=== PATIENT | male | born 1960 | race Caucasian/White ===

== ENCOUNTER 2020-08-11 21:32 | Emergency (ER) | payer OTHER, SELFPAY ==
--- NOTE | ~2020-08-11 | XR_ITS ---
EXAMINATION: XR FINGER, LEFT CLINICAL INFORMATION: Amputated tip of fifth digit COMPARISON: None TECHNIQUE: 3 views of the left fifth digit. FINDINGS: There appears to be open wound at the tip of the fifth digit. Compared to the other distal phalanges, a piece of the distal bone may be seen. No fracture fragments are seen. Incidental note made of degenerative changes at other DIP joints. XR/XR finger LT min 2V IMPRESSION: No acute fractures. Apparent amputation of the tip of the distal phalanx fifth digit
[2020-08-11 21:49] VITALS: BP 118/76; PULSE 80; RESP 16; TEMP 36.8; O2SAT 95; BMI 34.9
--- NOTE | 2020-08-11 21:53 | PC.NURSE ---
FINGER WRAPPED WITH BARI AND 2X2'S. HAD TO BE REINFORCED DUE TO BLEEDING THROUGH INITIAL BANDAGING. LEFT HAND ELEVATED ONTO PILLOW ON CHEST.
--- NOTE | 2020-08-11 22:07 | ED.WOUNDLAC ---
HPI - Wound/Laceration General Chief Complaint: Wound/Laceration Stated Complaint: lac Time Seen by Provider: 08/11/20 22:01 Source: patient and family Mode of arrival: ambulatory Limitations: altered mental status (Intoxicated) History of Present Illness HPI narrative: 59-year-old male presents with an amputated left 5th finger tip. States that he has been drinking [place] whiskey tonight and does not recall how he injured his finger. Related Data Previous Rx's Medication Instructions Recorded amoxicillin-pot clavulanate 1 tab PO Q12H 10 Days #20 tab 08/11/20 [Augmentin] oxycodone 5 mg PO Q4H PRN #10 tab 08/11/20 Allergies Allergy/AdvReac Type Severity Reaction Status Date / Time No Known Allergies Allergy Verified 08/11/20 22:07 Review of Systems Review of Systems: Constitutional: No Fever, No Chills ENT/Mouth: No Ear Pain, No Hoarseness, No sore throat Eyes: No Eye Pain, No Swelling, No Redness, No Foreign Body Cardiovascular: No Chest Pain, No SOB Respiratory: No Cough, No Dyspnea Gastrointestinal: No Nausea, No Vomiting, No Diarrhea, No abdominal Pain Genitourinary: No Dysuria, No Hematuria Musculoskeletal: positive left 5th finger pain, No Myalgias, No Joint Swelling Skin: Positive left 5th finger tip amputation with bone involvement, No Skin lacerations, No rash Neuro: No Weakness, No Numbness, No Paresthesias, No Loss of Consciousness, No Dizziness, No Headache Psych: No Anxiety/Panic, No Depression Heme/Lymph: no easy bruising, no Lymphadenopathy Endocrine: No Polyuria, No Polydipsia Yes all other systems are reviewed and are negative [facility] Past Medical History Attestation statement: The following information was validated with the patient. Source: old records reviewed Medical History Hypertension Social History Social History Advance Directives: No Advance Directives Information Provided: No Physical Exam Vital Signs: Vital Signs: Last Vital Signs Temp 98.2 F 08/11/20 21:49 Pulse 80 08/11/20 21:49 Resp 16 08/11/20 21:49 BP 118/76 08/11/20 21:49 Pulse Ox 95 08/11/20 21:49 Body Mass Index 34.9 Appearance: Alert. Oriented X3. No acute distress. Acute alcohol intoxication Eyes: Pupils equal, round and reactive to light. ENT: Pharynx normal. Neck: Normal inspection. Neck supple. CVS: Normal heart rate and rhythm. Pulses normal. Respiratory: No respiratory distress. Breath sounds normal. Abdomen: Soft and nontender. Skin: Skin warm and dry. Normal skin color. Normal skin turgor. Extremities: Moves all extremities against resistance. Left Fifth tip finger amputated with visible bone involvement. Neuro: No motor deficit. No sensory deficit. Course Course Course Narrative: 59-year-old male presents with a amputated left 5th finger tip. He is visibly intoxicated, he does not recall how he injured his finger. His drove him to the emergency department. Plan of care is for Tdap vaccine, Ancef 2 g IV, x-rays. I applied 8 sutures to the tip of the finger to approximate margins together and tried to close the wound. Detailed instructions to about needing to follow up with Hand surgery on Thursday and importance of antibiotics. As he is visibly intoxicated he should not take any pain medications until clinically sober. Prepped and draped in sterile fashion, irrigated with copious amounts of normal saline. Please refer to procedure note for full details. Patient tolerated procedure well. No bleeding or blood loss noted, finger tourniquet utilized during procedure to prevent blood loss. Patient tolerated procedure well. Patient and patient's family verbalized understanding of discharge instructions. Procedures Laceration Laceration 1: Site: hand Side (If applicable): left Size (cm): 3 Description: linear Depth: involves muscle layer Local Anesthetic: lidocaine 2% Amount of anesthesia used (mL): 5 Pre-repair: wound explored, irrigated extensively and wound margins revised Skin layer closed with: nylon Size (cm): 4-0 and 5-0 Number of sutures: 8 Technique: simple, interrupted and other (4 size 4-0, 4 size 5-0) MDM - Wound/Laceration Differential Diagnosis Differential diagnosis: Likely laceration Medical Records Attestation: I reviewed the patient's medical records. Imaging Data Left 5th finger: Attestation: I personally reviewed and interpreted this imaging study as follows: Radiologist's impression: EXAMINATION: XR FINGER, LEFT CLINICAL INFORMATION: Amputated tip of fifth digit COMPARISON: None TECHNIQUE: 3 views of the left fifth digit. FINDINGS: There appears to be open wound at the tip of the fifth digit. Compared to the other distal phalanges, a piece of the distal bone may be seen. No fracture fragments are seen. Incidental note made of degenerative changes at other DIP joints. XR/XR finger LT min 2V IMPRESSION: No acute fractures. Apparent amputation of the tip of the distal phalanx fifth digit Discharge Plan Discharge Clinical Impression: Amputated finger Qualifiers: Encounter type: initial encounter Qualified Code(s): S68.119A - Complete traumatic metacarpophalangeal amputation of unspecified finger, initial encounter Patient Disposition: Home, Self-Care Instructions: Finger Amputation (ED) Additional Instructions: You were evaluated for an amputated tip of the left 5th finger. You must follow-up with a hand surgeon, I referred you to Sagrario Cody's MD. please call and request an appointment on Thursday. You must take the antibiotics that were prescribed to you. Your bone was involved and you have high risk for osteomyelitis. We updated her Tdap vaccine today. I prescribed oxycodone for pain management. This medication is a narcotic and has high risk for addiction and abuse. Do not drive or operate machinery while taking this medication. This medication can cause drowsiness, increased risk for falls, and cause constipation. Use MiraLax and or Colace as needed to help soften stools. You may consider drinking less. Thank you for choosing this emergency department for evaluation. Please follow-up with primary care physician as needed. Return to the emergency department for any new, concerning, or worsening symptoms. Prescriptions: New amoxicillin-pot clavulanate [Augmentin] 875-125 mg tablet 1 tab PO Q12H 10 Days Qty: 20 RF: 0 oxycodone 5 mg tablet 5 mg PO Q4H PRN (Reason: pain) Qty: 10 RF: 0 Referrals: Sagrario Shannon MD [Physician] - 2 days (Left 5th finger tip amputation with bone involvement) Interventions: ED Discharge Assessment Last Done: 08/12/20 00:30 Discharge Date/Time: 08/12/20 00:31
[2020-08-11] MEDS: ceFAZolin Sodium 1.5 GM in 0.9 % Sodium Chloride 100 ML IV (23:15)
[2020-08-11] MEDS: Lidocaine HCl 2 % MPF 5 ML VIAL SUBCUT (23:16)
[2020-08-12] MEDS: Diphth,Pertus(ACell),Tet Adult 0.5 ML SYRINGE IM (00:03)
== END 2020-08-12 00:31 | disposition home or self-care (01) ==
PROVIDERS: Emergency Provider Internal Medicine; PCP Internal Medicine
DX: S68.117A Complete traumatic metacarpophalangeal amputation of left little finger, initial encounter (principal); X58.XXXA Exposure to other specified factors, initial encounter; F10.920 Alcohol use, unspecified with intoxication, uncomplicated; Y90.9 Presence of alcohol in blood, level not specified; I10 Essential (primary) hypertension; Y93.9 Activity, unspecified; Y92.9 Unspecified place or not applicable; Y99.9 Unspecified external cause status
CPT/HCPCS: 13132; 73140; 90471; 90715; 96365; 99284; J0690

== ENCOUNTER → 2020-08-13 10:12 | Outpatient (BNVA) | payer OTHER, SELFPAY | PROVIDERS: PCP Internal Medicine; Visit Provider Physician Assistant ==

== ENCOUNTER 2020-08-14 09:19 | Day surgery (SDC) | payer OTHER, SELFPAY ==
--- NOTE | 2020-08-13 11:56 | HO.ANESPROP2 ---
Documented by User: Kate Workman 08/13/20 11:56 HPI - Anesthesia Eval Consult details Narrative: 59yo M for Left Amputation Revision,small finger with excision of nail bed PMFSH Active Problems Active Problems: All Active Problems (Updated 08/13/20 @ 11:22 by Cici Archer PA-C) Partial traumatic amputation of right little finger through phalanx (Acute) Past Medical History Medical History Hypertension Social History Social History Smoking Status: Never smoker Second Hand Smoke Exposure: No Use of substances other than those prescribed or required for medical reasons: No Are you DNR?: No Advance Directives: No Advance Directives Information Provided: Yes Current occupational status: retired Meds Allergies Allergy/AdvReac Type Severity Reaction Status Date / Time No Known Allergies Allergy Verified 08/11/20 22:07 Home Medications Medication Instructions Recorded Confirmed Last Taken Type escitalopram oxalate 5 mg tablet 5 mg PO DAILY 08/13/20 Unknown History Exam Exam Date and Time: August 13, 2020 115 Assessment and Plan Assessment Anesthesia Assessment: Chart Reviewed Documented by User: Christi Lawson 08/14/20 11:14 PMFSH Past Medical History Medical History Hypertension Social History Social History Smoking Status: Never smoker Second Hand Smoke Exposure: No Use of substances other than those prescribed or required for medical reasons: No Are you DNR?: No Advance Directives: No Advance Directives Information Provided: Yes Current occupational status: retired Meds Allergies Allergy/AdvReac Type Severity Reaction Status Date / Time No Known Allergies Allergy Verified 08/11/20 22:07 Home Medications Medication Instructions Recorded Confirmed Last Taken Type escitalopram oxalate 5 mg tablet 5 mg PO DAILY 05/17/21 Unknown History Exam Airway Mallampati Class: II TM Dist: >3cm Neck ROM: Full Assessment and Plan Assessment Anesthesia Assessment: Anesthesia Plan Discussed and Chart Reviewed Final Anesthetic Review NPO: Yes ASA Class: II Final Preanesthetic Review: No Changes in Pt Med Stat, Meds/Allgs Chart Reviewed, Consent Obtained/Reviewed and Anes Risks/Benef Reviewed Patient Risk: Low Procedure Risk: Low Assessment/Block/Sedation in SS: Assess/Block/Sedation-SS Anesthetic Plan Anesthetic Plan: MAC: Disposition: Standard PACU
[2020-08-14 09:38] VITALS: BP 152/85; PULSE 77; RESP 18; TEMP 36.6; O2SAT 98; BMI 34.9
[2020-08-14] MEDS: ceFAZolin Sodium/Dextrose,Iso 2 GM/50 ML PIGGYBACK IV (09:48)
[2020-08-14 13:55] VITALS: BP 119/95; PULSE 84; RESP 16; TEMP 36.3; O2SAT 97
[2020-08-14 14:10] VITALS: BP 136/84; PULSE 88; RESP 16; O2SAT 98
--- NOTE | 2020-08-14 14:41 | P.OP_ITS ---
Operative Note Operative Note Date of Service: 08/14/20 Narrative: Operative Note Narrative: Preop diagnosis: Left small finger distal phalanx level amputation Postop diagnosis: Same Procedure: 1. Left small finger revision amputation 2. Excision of left small finger nail germinal matrix Surgeon: Sagrario Shannon MD Anesthesia: Mac plus regional block Findings: Left small finger distal phalanx amputation Implants: None Tourniquet time: 20 minutes EBL: 5.0 ml Specimen: None Drains: None Complications: None Disposition: Brought to the recovery room in stable condition Plan: Continue antibiotics Follow-up in 10-14 days for wound check Anticipate suture removal in 3 weeks Indications: The patient is a 59 year old man with a left small finger distal phalanx level amputation due to a car door . The risks and benefits of operative treatment, including but not limited to risk of damage to blood vessels, nerves, tendons, infection, recurrence, persistent pain or numbness, incomplete resolution of preoperative symptoms, or need for further surgery were discussed with the patient and they wished to proceed with surgery. Procedure: Once consent was obtained patient was brought back to the operating suite and placed in the operating table in a supine position. . Perioperative antibiotics and anesthesia was administered by the anesthesia team. A tourniquet was applied to the proximal aspect of the left upper extremity and the limb was prepped and draped in a standard surgical fashion. The limb was elevated exsanguinated with Esmarch bandage and the tourniquet inflated to 250 mm of mercury for a total tourniquet time of 20 minutes. I performed an ulnar nerve block by infiltrating about the ulnar nerve at the wrist with some core % plain Marcaine for postop pain control. The sutures were removed from the tip of the left small finger. The remaining nail was removed from the nail bed using a [place] elevator. I used a 15. Blade and a rongeur to remove the germinal matrix and sterile matrix from the nail bed. I used a rongeur or to shorten the distal phalanx by about 5 mm to allow for soft tissue coverage. I freshened up the skin edges using a 15. Blade removing only a mm or 2 where possible. The distal phalanx was debrided as were the soft tissues. A curette was used to clean the soft tissue from the distal phalanx. The wound was copiously irrigated with normal saline. I then reapproximated the skin and soft tissue over the tip of the small finger using some 5 0 nylon and 4-0 nylon suture material. At this point the tourniquet was deflated and hemostasis obtained with a brief period of local pressure . A sterile dressing was applied. The patient appears to have tolerated the procedure well with no complications. All digits were well vascularized at the conclusion of the case..
--- NOTE | 2020-08-14 14:41 | MHC.SHP ---
Pre-Procedural Eval Section B Chief Complaint: post traumatic injury little finger Allergies: Allergies Allergy/AdvReac Type Severity Reaction Status Date / Time No Known Allergies Allergy Verified 08/11/20 22:07 Plan I have reviewed the history and physical and performed a pertinent physical examination on my patient. No changes have occurred unless specified.
== END 2020-08-14 14:45 | disposition home or self-care (01) ==
PROVIDERS: PCP Internal Medicine; Visit Provider Orthopaedic Surgery
PROC: (CPT 26951; principal; 2020-08-14 11:40)
DX: S68.627A Partial traumatic transphalangeal amputation of left little finger, initial encounter (principal); V89.2XXA Person injured in unspecified motor-vehicle accident, traffic, initial encounter; Y93.89 Activity, other specified; Y92.9 Unspecified place or not applicable; Y99.8 Other external cause status; I10 Essential (primary) hypertension; Z79.899 Other long term (current) drug therapy
CPT/HCPCS: 26951; J0690; J2250; J3010

== ENCOUNTER → 2020-08-22 08:38 | Outpatient (BNVA) | payer OTHER, SELFPAY | PROVIDERS: PCP Internal Medicine; Visit Provider Physician Assistant ==

== ENCOUNTER → 2020-08-31 11:21 | Outpatient (BNVA) | payer OTHER, SELFPAY | PROVIDERS: Visit Provider Physician Assistant ==

== ENCOUNTER → 2020-09-05 09:31 | Outpatient (BNVA) | payer OTHER, SELFPAY | PROVIDERS: Visit Provider Orthopaedic Surgery ==

== ENCOUNTER → 2020-10-03 10:19 | Outpatient (BNVA) | payer OTHER, SELFPAY | PROVIDERS: Visit Provider Orthopaedic Surgery ==

== ENCOUNTER → 2020-11-07 14:22 | Outpatient (BNVA) | payer OTHER, SELFPAY | PROVIDERS: Visit Provider Orthopaedic Surgery ==

== ENCOUNTER 2020-11-29 09:11 | Outpatient (REF) | payer OTHER, SELFPAY | END 2020-11-29 09:12 | disposition home or self-care (01) | LOC: HO.HOSX 09:11 | PROVIDERS: Visit Provider Orthopaedic Surgery | DX: Z13.89 Encounter for screening for other disorder (principal) ==

== ENCOUNTER 2021-01-14 09:27 | Day surgery (SDC) | payer OTHER, SELFPAY ==
[2021-01-14 11:04] VITALS: BP 147/99; PULSE 81; RESP 16; TEMP 36.2; O2SAT 96
--- NOTE | 2021-01-14 11:26 | MHC.SHP ---
Pre-Procedural Eval Section A Date of Service: 01/14/21 The patient is an INPATIENT: No Changes since office visit: No Cold of Flu in the past 2 weeks, No New Medical Problems, No Changes in Medication and No Patient answered all questions The History & Physical has been completed within 30 days and I have reviewed it.: Yes Section B Chief Complaint: nail disorder Allergies: Allergies Allergy/AdvReac Type Severity Reaction Status Date / Time No Known Allergies Allergy Verified 10/03/20 10:41 Plan I have reviewed the history and physical and performed a pertinent physical examination on my patient. No changes have occurred unless specified.
--- NOTE | 2021-01-14 11:27 | W.PM.OPN ---
Operative Note Operative Note Date of Service: 01/14/21 Narrative: Operative Note Preop diagnosis: 1. Left small finger nail horn Postop diagnosis: The same Procedure: 1. Left small finger excision of nail horn and germinal matrix Surgeon: Sagrario Shannon MD Anesthesia: Digital block and ulnar nerve block using 1% lidocaine with epinephrine Findings: Nail horn EBL: Less than 5 mL Tourniquet time: None Specimens: Nail horn and germinal matrix Complications: None Disposition: Brought to recovery room in stable condition Plan: Follow-up for 7-10 days for wound check and suture removal , and to check pathology Indications: The patient is a 60 years old, with a left small finger nail horn, status post partial amputation. The risks and benefits of operative treatment including but not limited to risk of damage to blood vessels, nerves, tendons, infection, persistent pain, persistent symptoms, recurrence or possible need for additional surgery were discussed with the patient and the patient wishes to proceed with surgery. Procedure: Once consent was obtained a digital block and an ulnar nerve block were performed in the preop area using a combination of 1% lidocaine with epinephrine. The patient was then brought back to the operating suite and placed on the operative table in supine position. A tourniquet was applied to the proximal aspect of the left upper extremity and the limb was prepped and draped in a standard surgical fashion. Once assured that we had a good block, a longitudinal incision was made extending proximal to the left small finger nail horn. The incision was made through the skin to the subcutaneous tissues using a 15. Blade. I then dissected down to the level of the germinal matrix just proximal to the nail horn. I then made an elliptical incision removing the remaining germinal matrix and the nail horn. This was placed on the back table to be sent for pathology. A small curette and a rongeur was used to remove any remaining germinal matrix. The wound was then irrigated with normal saline and the skin edges were reapproximated with some 5.0 nylon suture material and a sterile dressing was applied. The patient appears to have tolerated the procedure well and with no complications. All digits were well vascularized at the conclusion of the case.
[2021-01-14 11:30] VITALS: BMI 34.2
[2021-01-14 11:50] VITALS: BP 120/83; PULSE 72; RESP 20; TEMP 36.1; O2SAT 96
== END 2021-01-14 12:16 | disposition home or self-care (01) ==
PROVIDERS: PCP Internal Medicine; Visit Provider Orthopaedic Surgery
PROC: (CPT 11750; principal; 2021-01-14 11:50)
DX: L60.2 Onychogryphosis (principal); S68.62 Partial traumatic transphalangeal amputation of other and unspecified finger; I10 Essential (primary) hypertension
CPT/HCPCS: 11750; 88304; 88305

== ENCOUNTER → 2021-01-22 12:26 | Outpatient (BNVA) | payer OTHER, SELFPAY | PROVIDERS: Visit Provider Orthopaedic Surgery ==

== ENCOUNTER → 2021-04-30 08:49 | Outpatient (BNVA) | payer OTHER, SELFPAY | PROVIDERS: Visit Provider Orthopaedic Surgery ==

== ENCOUNTER 2021-08-06 06:24 | Day surgery (SDC) | payer OTHER, SELFPAY ==
[2021-07-30 14:40] VITALS: BMI 36.5
--- NOTE | 2021-08-05 11:46 | HO.ANESPROP2 ---
HPI - Anesthesia Eval Consult details Narrative: 60yo M for Colonoscopy PMFSH Active Problems Active Problems: All Active Problems (Updated 07/30/21 @ 14:42 by Pavithra Sebastian RN) Partial traumatic amputation of left little finger through phalanx (Acute) Nail abnormality (Acute) Abscess of finger of left hand (Acute) Past Medical History Medical History (Updated 07/30/21 @ 14:42 by Pavithra Sebastian RN) Diverticulosis Hypertension Surgical History Surgical History (Updated 07/30/21 @ 14:42 by Pavithra Sebastian RN) H/O colonoscopy Hx of hand surgery Hx of hand surgery Hx of tonsillectomy Social History Social History Patient Tobacco Use Status: Never used Tobacco Second Hand Smoke Exposure: No Use of substances other than those prescribed or required for medical reasons: No Are you DNR?: No Advance Directives: No Advance Directives Information Provided: Yes Current occupational status: retired Meds Allergies Allergy/AdvReac Type Severity Reaction Status Date / Time No Known Allergies Allergy Verified 04/30/21 09:01 Home Medications Medication Instructions Recorded Confirmed Last Taken Type escitalopram oxalate 5 mg tablet 5 mg PO DAILY 08/13/20 07/30/21 08/06/21 History (Lexapro) lisinopril 20 mg tablet 1 tab PO DAILY 01/14/21 07/30/21 08/06/21 History hydrochlorothiazide 12.5 mg tablet 1 tab PO DAILY 07/30/21 07/30/21 08/06/21 History multivitamin 1 tab PO DAILY 07/30/21 07/30/21 Unknown History Exam Exam Date and Time: August 05, 2021 1146 Height,Weight and Vital Signs: Height 5 ft 8 in Weight 108.862 kg Assessment and Plan Assessment Anesthesia Assessment: Chart Reviewed
[2021-08-06 06:40] VITALS: BP 154/89; PULSE 74; RESP 16; TEMP 36.1; O2SAT 96
[2021-08-06] MEDS: Lactated Ringers 1,000 ML 100 ML IVCONT (06:58)
--- NOTE | 2021-08-06 07:19 | HO.ANESPROP2 ---
[facility] Active Problems Active Problems: All Active Problems (Updated 07/30/21 @ 14:42 by Pavithra Sebastian RN) Partial traumatic amputation of left little finger through phalanx (Acute) Nail abnormality (Acute) Abscess of finger of left hand (Acute) Past Medical History Medical History (Updated 07/30/21 @ 14:42 by Pavithra Sebastian RN) Diverticulosis Hypertension Family History Family history of problems with anesthesia: No Surgical History Surgical History (Updated 07/30/21 @ 14:42 by Pavithra Sebastian RN) H/O colonoscopy Hx of hand surgery Hx of hand surgery Hx of tonsillectomy History of Problems with Anesthesia: No Social History Social History Patient Tobacco Use Status: Never used Tobacco Second Hand Smoke Exposure: No Use of substances other than those prescribed or required for medical reasons: No Are you DNR?: No Advance Directives: No Advance Directives Information Provided: Yes Current occupational status: retired Meds Allergies Allergy/AdvReac Type Severity Reaction Status Date / Time No Known Allergies Allergy Verified 04/30/21 09:01 Active Medications: Current Medications Lactated Ringer's (Lr) 1,000 mls @ 100 mls/hr IVCONT .Q10H ELVA Last Admin: 08/06/21 06:58 Dose: 100 mls/hr Documented by: Home Medications Medication Instructions Recorded Confirmed Last Taken Type escitalopram oxalate 5 mg tablet 5 mg PO DAILY 08/13/20 07/30/21 08/06/21 History (Lexapro) lisinopril 20 mg tablet 1 tab PO DAILY 01/14/21 07/30/21 08/06/21 History hydrochlorothiazide 12.5 mg tablet 1 tab PO DAILY 07/30/21 07/30/21 08/06/21 History multivitamin 1 tab PO DAILY 07/30/21 07/30/21 Unknown History Exam Exam Date and Time: August 06, 2021718 Height,Weight and Vital Signs: Height 5 ft 8 in Weight 108.862 kg Last Vital Signs Temp 96.9 F 08/06/21 06:40 Pulse 74 08/06/21 06:40 Resp 16 08/06/21 06:40 BP 154/89 H 08/06/21 06:40 Pulse Ox 96 08/06/21 06:40 Airway Mallampati Class: IV TM Dist: >3cm Neck ROM: Full Assessment and Plan Assessment Anesthesia Assessment: Anesthesia Plan Discussed and Chart Reviewed Final Anesthetic Review Family History of Problems with Anesthesia: No History of Problems with Anesthesia: No NPO: Yes ASA Class: III Final Preanesthetic Review: No Changes in Pt Med Stat, Meds/Allgs Chart Reviewed, Consent Obtained/Reviewed and Anes Risks/Benef Reviewed Patient Risk: Intermediate Procedure Risk: Low Anesthetic Plan Anesthetic Plan: MAC: Disposition: Standard PACU
--- NOTE | 2021-08-06 07:25 | MHC.SHP ---
Pre-Procedural Eval Section A Date of Service: 08/06/21 Section B Chief Complaint: Hemorrhage of anus and rectum Details of Present Illness: see H&P no changes Relevant Family History (Specify if Yes): No Relevant Social History: None Present Medications: see Short Stay Collaborative assessment Medical History: No relevant PMH History of Previous Operations: No relevant previous surgery Allergies: Allergies Allergy/AdvReac Type Severity Reaction Status Date / Time No Known Allergies Allergy Verified 04/30/21 09:01 Review of Systems Sugical H&P ROS: Negative: Constitution, Cardiovascular, Respiratory, Neurological, Psychiatric, Hem-Onc, Allergic/Immunologic, Gastrointestinal, Genitourinary, Musculoskeletal, Integumentary, Endocrine and Eyes/Ears/Nose/Throat Exam Surgical H&P Exam: Normal: HEENT, Normal: Heart, Normal: Lungs, Normal: Extremities, Normal: Abdomen, Normal: Skin and Normal: Neurological Plan Diagnosis/Plan: Unchanged I have reviewed the history and physical and performed a pertinent physical examination on my patient. No changes have occurred unless specified.
[2021-08-06 08:08] VITALS: BP 110/61; PULSE 100; RESP 16; TEMP 36.4; O2SAT 98
--- NOTE | 2021-08-06 08:12 | PM.OP ---
Brief Operative Note Date of Service: 08/06/21 Pre-op diagnosis: rectal bleeding Post-op diagnosis: same (anal polyp) Procedure: colonoscopy Surgeon: Adonay Pack Anesthesia: MAC Was an Conference Reservationist used for this Procedure?: No Estimated blood loss (mL): 2 Pathology: other (bx anal polyp) Condition: stable Disposition: PACU
[2021-08-06 08:15] VITALS: BP 107/65; PULSE 96; RESP 19; O2SAT 96
[2021-08-06 08:23] VITALS: BP 132/90; PULSE 89; RESP 18; TEMP 36.7; O2SAT 96
--- NOTE | 2021-08-06 08:52 | OP_ITS ---
SURGEON: Adonay Pack MD INDICATIONS: Rectal bleeding. PREOPERATIVE DIAGNOSIS: POSTOPERATIVE DIAGNOSIS: PROCEDURE PERFORMED: Colonoscopy to the terminal ileum with biopsy. ESTIMATED BLOOD LOSS: COMPLICATIONS: ANESTHESIA: ASSISTANTS: SPECIMENS: MEDICATIONS: Monitored anesthesia care. DESCRIPTION OF PROCEDURE: The history and physical performed. The risks and benefits of the procedure were explained to the patient. Informed consent was obtained. The patient was placed in the left lateral decubitus position. A digital rectal exam was performed and was found to be normal. The Olympus pediatric video colonoscope was introduced into the rectum and advanced to the cecum without difficulty. The cecum was identified by transillumination, palpation, and identification of the ileocecal valve. Examination was performed. The scope was removed. He tolerated the procedure well and was transferred to recovery area in stable condition. FINDINGS: The terminal ileum was examined and appeared normal. The visualized colonic mucosa was normal. There was moderate sigmoid diverticulosis with scattered diverticula throughout the remainder of the colon and into the cecum. The quality of the prep was good, but did require some washing to remove a coating of liquid stool, mainly in the sigmoid. On retroflexed examination, there was a polypoid anal polyp. There was a polypoid anal lesion measuring approximately 10 x 12 mm which was biopsied. 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 On external examination of the rectum, there were several skin tags, which were not bleeding. IMPRESSION: 1. Diverticulosis. 2. Polypoid anal lesion as above. RECOMMENDATIONS: 1. Follow the biopsy results. 2. Consider referral to General Surgery for removal, pending pathology. MD TEE Ross/JM / [id number]
== END 2021-08-06 08:55 | disposition home or self-care (01) ==
PROVIDERS: PCP Internal Medicine; Visit Provider Internal Medicine Gastroenterology
PROC: 0DJD8ZZ Inspection of Lower Intestinal Tract, Via Natural or Artificial Opening Endoscopic (ICD-10-PCS; CPT 45378; principal; 2021-08-06 07:30)
DX: K62.5 Hemorrhage of anus and rectum (principal); K57.30 Diverticulosis of large intestine without perforation or abscess without bleeding; K62.0 Anal polyp; K64.4 Residual hemorrhoidal skin tags; I10 Essential (primary) hypertension; Z79.899 Other long term (current) drug therapy
CPT/HCPCS: 45380; 88305; J2250

== ENCOUNTER 2025-02-21 09:25 | Outpatient (AMB) | payer OTHER, SELFPAY ==
--- NOTE | 2025-02-21 09:41 | A.OFFVIS_ITS ---
Intake Visit Reasons: Newprob-Bum LT hand/Pinky finger Intake Note: Garrett 64 yr old left hand dominant male who is retired, presents today for a new problem visit for his left small finger. Hx of left small Finger excision nail horn 01/14/[address] Shannon. Today patient states he has concerns for his small left finger. States he has lump on his PIP of small finger since his surgery in 2020. Reports no pain, just concerns due to it increasing in size for the last year. He is not able to fully extend his small finger due to lump on PIP joint. Denies numbness, tingling or locking of any finger. . Allergies No Known Allergies Allergy (Verified 02/21/25 09:47) HPI HPI Newprob-Bum LT hand/Pinky finger: Details: Garrett is a 64 year old right hand dominant man who presents for a left small finger mass. He says this has been present since his small finger surgeries in 2020. This has been increasing in size over the last year, and he says this is limiting his ROM. He denies any pain, numbness, tingling, or locking. He has a hx of a: Left small finger distal superficial abscess, aspirated 04/30/21, Left small finger S/P excision of nail horn, DOS 01/14/21, & Left small finger distal phalanx level partial amputation, S/P revision amputation through the distal phalanx with excision of the germinal nail matrix, [facility]: [facility] Medical History (Updated 02/21/25 @ 10:29 by Patrick New) Diverticulosis Hypertension Surgical History Hx of tonsillectomy Hx of hand surgery Hx of hand surgery H/O colonoscopy Social History (Updated 02/21/25 @ 09:47 by NEY Prince) Patient Tobacco Use Status: Never used Tobacco Second Hand Smoke Exposure: No Current occupational status: retired Current occupation: left hand Review of Systems Const All systems reviewed & are unremarkable except as noted in HPI and below Physical Exam Const General: no acute distress and alert Orientation/consciousness: patient oriented x3 Neuro General: patient oriented x3 Extrem Other: Evaluation of Left Upper Extremity: The patient is alert, oriented, and in no acute distress Neuro: Median, Ulnar, Radial nerves motor and sensory intact and sensation is normal to the tips of all digits Vascular: Cap refill brisk ROM: He can make a fist and extend all his digits, with goo strength and no pain No locking or catching He has a soft tissue mass on the dorsal ulnar aspect of his small finger PIP joint. Measuring ~5-6mm in diameter. No overlying skin changes. He has an ~5-10 degree flexion contracture of the small finger PIP joint, can be passively brought to full extension Good resolution of the nail horn Radiographs: 3 views of the small finger were taken and viewed by me today in clinic. they show no arthritis changes, fractures, or dislocations. There is a soft tissue shadow to the dorsal ulnar aspect of the small finger, with no bony prominence. Psych Appearance: grossly normal Affect: normal affect Attitude: cooperative Assessment & Plan Assessment & Plan (1) Mass of left finger: Comment: SF Code(s): R22.32 - Localized swelling, mass and lump, left upper limb Category: Medical Plan Assessment & Plan: 1. Left small finger soft tissue mass Measuring ~5-6mm in diameter, dorsal ulnar aspect of the PIP joint I educated him about this condition I discussed operative and non-operative treatment options The patient would like to proceed with surgery The risks and benefits of operative treatment were discussed with the patient and the patient wishes to proceed with surgery. These risks include, but are not limited to risk of damage to blood vessels, nerves, tendons, infection, recurrence, incomplete relief of preoperative symptoms, persistent pain, possible need for further surgery and the risks associated with regional blocks and anesthesia. The plan is to take the patient to the operating room sometime in the next few weeks for the following procedures: 1. Left small finger mass excision, under local All of the preoperative paperwork including the consent was reviewed today. All the patient's questions were answered. The patient understands that they will be contacted by our women's lacrosse coach soon to schedule this procedure He denies Diabetes, blood thinners, asthma, heart, lung, kidney issues 2. Left small finger distal superficial abscess, aspirated 04/30/21 3. Left small finger S/P excision of nail horn DOS 01/14/21 4. Left small finger distal phalanx level partial amputation, S/P revision amputation through the distal phalanx with excision of the germinal nail matrix. DOS: 08/14/20 Please note that greater than 30 minutes was spent with this patient going over the history, evaluating the patient and radiographs, formulating possible treatment options, discussing them with the patient, and documenting the visit. Scribed for Sagrario Shannon MD by Patrick New, medical case worker, on 02/21/25 at 10:00 AM, EST. Orders: Orders XR hand LT min 3V Today M79.642 - Pain in left hand Coding Level of Care Code Est Pt Level 4 (99616) Diagnoses Mass of left finger R22.32
--- OUTSIDE RECORDS SUMMARY | 2025-02-21 10:45 | XMS_ITS | Clinical Summary ---
Author Organization [facility] Address [address] [facility] [address] [place] [id number] Phone Care Team Providers Care Lockstitch Topstitcher Name Role Phone James Carmona MD Primary Care Provider [phone] James Carmona MD Unavailable [phone] Adina Yna MD Unavailable [phone] Allergies No known active allergies Medications cholecalciferol (VITAMIN D3) 2,000 unit capsule Take 2,000 Units by mouth daily. Active therapeutic multivitamin tablet Take 1 tablet by mouth daily. Active SOUR HERNANDEZ EXTRACT ORAL Take 1 tablet by mouth daily. Active Medication-Free Text Tumeric Take 1 tablet by mouth once daily. Active NIACINAMIDE ORAL Take 2 capsules by mouth every evening. Active escitalopram oxalate (LEXAPRO) 20 MG tabletIndication s:Anxiety TAKE 1 TABLET DAILY 90 tablet 3 5 Active hydroCHLOROthiaz genoveva 12.5 MG tabletIndication s:Essential hypertension TAKE 1 TABLET DAILY 90 tablet 3 5 Active lisinopril (ZESTRIL) 10 MG tabletIndication s:Benign essential hypertension Take 1 tablet (10 mg total) by mouth daily. 90 tablet 3 5 Active semaglutide, weight loss, (WEGOVY) 2.4 mg/0.75 mL subcutaneous pen injectionIndicat ions:Class 1 obesity due to excess calories with serious comorbidity and body mass index (BMI) of 32.0 to 32.9 in adult Inject 0.75 mL (2.4 mg total) under the skin every 7 days. INJECT 0.75 ML (2.4 MG) SUBCUTANEOUS EVERY 7 DAYS. 3 mL 3 5 Active Active Problems Problem Noted Date Diagnosed Date Essential hypertension 02/04/2018 Assessment & Plan (07/04/2022 1:29 PM EDT): Well managed on ACEi and HCTZ Encouraged low sodium diet Impaired fasting glucose 02/04/2018 Assessment & Plan (07/04/2022 1:52 PM EDT): Garrett is prediabetic starting in 2020 with his A1c 5.7% at that time. His A1c has fluctuated between 5.6 - 5.9%. Today it is 5.7% lower than his previous lab. Garrett exercises 4 -5x weekly for 45 minutes and eats a healthy fairly low carb- high fiber diet. His biggest challenge is snacking after dinner. We discussed healthy eating guidelines per ADA recommendations with literature provided. We discussed having second helpings of vegetables and protein if he is still hungry after dinner, but avoid further starches. We also discussed healthier snacking options and setting reasonable time to stop eating during the evening. Encouraged Garrett to hydrate well and emphasized the importance of physical activity. We discussed how exercise and alcohol may contribute to low sugars for an extended period of time. Reviewed hypoglycemia prevention, recognition and management. We discussed T2DM, what it is, complications, and usual progression. We also discussed the kinds of medications that are effective in controlling high glucose. No medications are indicated at this time. Encouraged to continue to make healthy diet choices and remain as physically active as tolerates. Encouraged to contact us with any concerns or questions and follow up in 1 year. Obesity 02/04/2018 Assessment & Plan (07/04/2022 1:53 PM EDT): Continue to eat healthy and exercise regularly. Obstructive sleep apnea syndrome 02/04/2018 Assessment & Plan (07/04/2022 1:29 PM EDT): Uses CPaP mask consistently Anxiety 03/10/2017 Routine general medical exam ination at a health care facility 01/29/2017 Hyperlipidemia Overview (04/03/2020): elevated triglycerides Assessment & Plan (07/04/2022 1:30 PM EDT): Elevated triglycerides likely due to dietary intake Encouraged heart healthy diet and continue to exercise consistently Encounters Date Type Department Care Team Description 01/06/2025 Telephone [facility] Internal Medicine [address] [place] [address] James Carmona MD CPAP order 12/26/2024 Refill [facility] Internal Medicine [address] [facility] [place] [address] James Carmona MD Medication Refill from Last 3 Months Immunizations Immunization Administration Dates Next Due COVID-19 (Pre-01/19) Pfizer Vaccine, mRNA, PF 06/20/2020,05/31/2020 INFLUENZA, SPLIT VIRUS, TRIVALENT PF 01/12/2024 INFLUENZA, SPLIT VIRUS, TRIV ALENT W/ PRESERVATIVE IM 01/16/2021,01/17/2015 Influenza Quadrivalent MDCK Preservative Free IM 01/09/2020 Influenza Quadrivalent Preservative Free IM 01/29,12/23/2021,01/23/2021 Influenza Split (Incl. Purif ied Surface Antigen) 12/28/2008 Influenza, Unspecified Formulation 12/29/2018, RSV Vaccine (bivalent) 07/20/2023 Td, unspecified formulation 08/28/2006 Tdap 08/12/2020,10/26/2012 Zoster recombinant 08/11/2022,02/27/2022 Family History Medical History Relation Comments No Known Problems Daughter Chronic Lymphocytic Leukemia Father Kidney disease Father Hypertension Mother No Known Problems Son Relation Status Comments Brother 2 brothers healt hyt Daughter Alive Father (Age 79) chronic leukem ia Mother Alive healthy Son Alive Social History Tobacco Use Types Packs/Day Years Used Date Smoking Tobacco: Never Smokeless Tobacco: Never Tobacco Cessation:Counseling Given: Not Answered Alcohol Use Standard Drinks/Week Comments Yes 8 (1 standard drink = 0.6 oz pur e alcohol) either wine or vodka Child or Family Care Answer Date Record ed Do you have problems with on e of the following making it difficult for you to work, study, or receive health care? No 09/22/2023 Education Answer Date Recorded Are you interested in help w ith more adult education (for example, completing high school, GED, job training, learning the [place] language, technical skills, or developing parenting skills)? No 09/22/2023 Are you concerned about learning? Not on file 09/22/2023 No 09/22/2023 Yes 09/22/2023 Food Answer Date Recorded Within the past 6 months we worried whether our food would run out before we got money to buy more. Never True 09/22/2023 Within the past 6 months the food we bought just didn't last and we didn't have enough money to get more. Never True Residential Stability Answer Date Recor ded What is your housing situation today? I have katie cheng 09/22/2023 How many times have you move d in the past 12 months? Zero (I did not move) 09/22/2023 Paying for Meds Answer Date Recorded Do you have trouble paying for medicines? No 09/22/2023 Paying Utility Bills Answer Date Record ed Do you have trouble paying your heating or elect ricity bill? No 09/22/2023 Transportation Answer Date Recorded Has the lack of transportati on kept you from medical appointments or from getting medications? No 06/25/2022 Unemployment Answer Date Recorded Are you currently unemployed or working on a part-time or temporary basis, and looking for work? No 06/25/2022 Digital Access Answer Date Recorded No 09/22/2023 Yes 09/22/2023 Do you have reliable internet access at home? Ye s 09/22/2023 Do you have a device (e.g., phone, tablet, computer) with a working camera? Yes 09/22/2023 Intimate Partner Violence Answer Date R ecorded Denied Basic Needs Not on file 09/22/2023 In the past 12 months have y ou been in a relationship with a person who hurts, threatens, or tries to control you? No 09/22/2023 Worried food would run out Not on file 09/21 In the past 12 months have y ou been in a relationship with a person who hurts, threatens, or tries to control you? No 09/22/2023 Sex and Gender Information Value Date Recorded Sex Assigned at Not on file Legal Sex Male 9:45 PM EDT Gender Identity Not on file Sexual Orientation Not on file Last Filed Vital Signs Vital Sign Reading Time Taken Comments Blood Pressure 114/70 06/17/2024 8:56 AM EDT Pulse 73 06/17/2024 8:56 AM EDT Temperature 36.7 C (98 F) 06/17/2024 8:56 AM EDT Respiratory Rate 18 06/17/2024 8:56 AM EDT Oxygen Saturation 96% 06/17/2024 8:56 AM EDT Inhaled Oxygen Concentration - - Weight 96.5 kg (212 lb 12.8 oz) 06/17/2024 8:56 AM EDT Height 172.3 cm (5' 7.84 ) 06/17/2024 8:56 AM ED T Body Mass Index 32.51 06/17/2024 8:56 AM EDT Plan of Treatment Upcoming Encounters Date Type Department Care Team (Late st Contact Info) Description 03/03/2025 4:00 PM EST Office Visit [facility] Internal Medicine [address] [place] [address] James Carmona MD [address] [place] [address] [email or web address] 03/08/2025 10:00 AM EST Office Visit [facility] Internal Medicine [address] [place] [address] James Carmona MD [address] [place] [address] [email or web address] Health Maintenance Due Date Last Done Comments COLOGUARD 2006 FIT TEST 2006 FOBT 2006 SIGMOIDOSCOPY 2006 VIRTUAL COLONOSCOPY 2006 PNEUMOCOCCAL VACCINES (50+ years) (1 of 1 - PCV) 12/01/2011 DEPRESSION SCREENING 09/21/2024 09/22/2023 INFLUENZA VACCINE (#1) 2024 4, 02/21/2023, 12/23/2021, Additional history exists COVID-19 VACCINE ( season) 2024 01/12/2024, 03/02/2023, 02/27/2022, Additional history exists BLOOD PRESSURE 12/18/2024 06/17/2024 CREATININE LEVEL 06/07/2025 06/07/2024, 07/2023, 10/26/2023, Additional history exists POTASSIUM LEVEL 06/07/2025 06/07/2024, 07/2023, 10/26/2023, Additional history exists SCREENING FOR DIABETES 06/08/2027 , 06/07/2024, 10/11/2019, Additional history exists LIPID PANEL 10/25/2028 10/26/2023, 02/27, 06/25/2021, Additional history exists Adult Td,Tdap Booster 08/12/2030 08/12/2020 , 10/26/2012, 08/28/2006 COLONOSCOPY 08/07/2031 08/06/2021, 03/11/2013 COLORECTAL CANCER SCREENING 08/07/2031 HEPATITIS C SCREENING Completed 10/11/2019, 020 HIV ONE-TIME SCREENING (18-65 YEARS) Completed 10/11/2019 ZOSTER VACCINES Completed 08/11/2022, 02/27/2022 RSV VACCINE Completed 07/20/2023 SMOKING STATUS SCREENING (Once After 26 Yrs) Completed 06/17/2024 HEPATITIS A VACCINES Aged Out No long er eligible based on patient's age to complete this topic HIB VACCINES Aged Out No longer eligi ble based on patient's age to complete this topic MENINGOCOCCAL VACCINES (ACWY) Aged Out No longer eligible based on patient's age to complete this topic MENINGOCOCCAL VACCINES (B) Aged Out N o longer eligible based on patient's age to complete this topic Medical Devices Not on file Procedures Procedure Name Priority Date/Time Associated Diagnosis Comments COMPREHENSIVE METABOLIC PANEL (CMP) Routine 06/07/2024 11:03 AM EDT Class 2 severe obesity due to excess calories with serious comorbidity and body mass index (BMI) of 36.0 to 36.9 in adult Impaired fasting glucose Benign essential hypertension LIPID PANEL Routine 10/26/2023 9:36 AM EDT Pure hypertriglyceridemia HM COLONOSCOPY FOR RESULT ENTRY ONLY Routine 08/06/2021 OUTSIDE GLUCOSE TOLERANCE Routine 10/11/2019 OUTSIDE HIV Routine 10/11/2019 HEPATITIS C ANTIBODY, QUALITATIVE Routine 10/11/2019 from Last 3 Months or Most Recently Relevant to Health Maintenance Results * Comprehensive metabolic panel (06/07/2024 11:03 AM EDT) SODIUM 139 133 - 146 mmol/L [facility] POTASSIUM 3.8 3.3 - 5.1 mmol/L [facility] CHLORIDE 100 96 - 108 mmol/L [facility] CO2 27 21 - 35 mmol/L [facility] BUN 6 6 - 19 mg/dL [facility] CREATININE 0.70 0.5 - 1.5 mg/dL [facility] GLUCOSE 93 70 - 99 mg/dL [facility] ALBUMIN 4.2 3.9 - 4.8 g/dL [facility] TOTAL PROTEIN 7.5 6.5 - 8.0 g/dL [facility] CALCIUM 9.8 8.4 - 10.3 mg/dL [facility] ALKALINE PHOSPHATASE 102 39 - 117 U/L [facility] TOTAL BILIRUBIN 1.1 0.0 - 1.2 mg/dL [facility] AST 31 0 - 37 U/L [facility] ALT 23 0 - 40 U/L [facility] GLOBULIN 3.3 1 - 4.8 g/dL [facility] EGFR 104 >59 mL/min/1.7 3m2 [facility] Comment:Estimated glomerular filtration rate calculated using the CKD-EPI refit equation. ANION GAP 16 10 - 20 mmol/L [facility] Blood 06/07/2024 11:0 3 AM EDT 06/07/2024 11:05 AM EDT us James Carmona MD LAB BLOOD BKR ORDERABLES Yumi mejia Result [address] [address] * Lipid panel (10/26/2023 9:36 AM EDT) HDL 40 mg/dL [facility] Comment: Interpretation <40 mg/dL: Low HDL cholesterol (major risk factor for CHD) Greater than or equal to 60 mg/dL: High HDL cholesterol ( negative risk factor for CHD) HDL - cholesterol is affected by a number of factors, e.g. smoking, excerise, hormones, sex and age. CHOLESTEROL 143 0 - 240 mg/dL [facility] TRIGLYCERIDES 121 30 - 160 mg/dL [facility] LDL 79 50 - 129 mg/dL [facility] Comment: LDL levels in terms of risk for coronary heart disease: <100 mg/dL: Optimal 100-129 mg/dL: Near or above optimal 130-159 mg/dL: Borderline high 160-189 mg/dL: High >190 mg/dL: Very High CARDIAC RISK RATIO 3.6 3.4 - 5.0 [facility] Blood 10/26/2023 9:36 AM EDT 10/26/2023 9:40 AM EDT Result [facility] James Carmona MD LAB BLOOD BKR ORDERABLES Yumi l Result [address] [address] * HM COLONOSCOPY FOR RESULT ENTRY ONLY (08/06/2021) Historical Provider HEALTH MAINTENANCE Edited Result - Final * Outside Glucose Tolerance Test (2 Hr) (10/11/2019) Glucose Tolerance - External 130 54 - 139 mg/dL Historical Provider LAB BLOOD ORDERABLES Yumi l Result * OUTSIDE HIV TEST (10/11/2019) HIV - External Neg Historical Provider LAB BLOOD ORDERABLES Yumi l Result * Hepatitis C antibody, qualitative (10/11/2019) James Carmona MD LAB BLOOD BKR ORDERABLES Edit ed Result - Final from Last 3 Months or Most Recently Relevant to Health Maintenance Insurance [facility] [employer] [facility] [employer] [facility] [employer] [facility] [employer] [facility] [employer] [facility] [employer] Care Teams Lockstitch Topstitcher Relationship Specialty Start Date End Date James Carmona MD [address] [place] [address] [email or web address] PCP - General 01/15/17 James Carmona MD [address] [place] [address] Historical LMR Provider 01/17/17 Adina Yan MD [address] [address] Dermatology 04/03/20 Additional Source Comments The information contained in this document represents components of the legal health record. It is not the complete legal health record.[facility]
== END 2025-02-21 10:38 | disposition home or self-care (01) ==
LOC: HO.HOS 09:26
PROVIDERS: PCP Internal Medicine; Visit Provider Orthopaedic Surgery
DX: R22.32 Localized swelling, mass and lump, left upper limb (principal)
CPT/HCPCS: 99204

== ENCOUNTER → 2025-02-21 10:16 | Outpatient (BNV) | payer OTHER, SELFPAY | PROVIDERS: Visit Provider Radiology Diagnostic Radiology | DX: M79.642 Pain in left hand (principal) | CPT/HCPCS: 73130 ==

== ENCOUNTER 2025-02-22 07:08 | Outpatient (REF) | payer OTHER, SELFPAY ==
--- NOTE | ~2025-02-22 | XR_ITS ---
EXAMINATION: XR HAND 3 OR MORE VIEWS LEFT HISTORY: M79.642 - Pain in left hand COMPARISON: Comparison is made with the prior examination dated 08/11/2020. FINDINGS: Four views of the left hand are submitted. Osseous mineralization is normal. The patient is status post amputation of a portion of the distal phalanx of the 5th finger since the study. There is no acute fracture or dislocation. The joint spaces are preserved. There is soft tissue swelling over the PIP joint of the 5th finger. XR/XR hand LT min 3V IMPRESSION: There is post amputation of a portion of the distal phalanx of the 5th finger. Soft tissue swelling over the PIP joint of the 5th finger. Electronically signed by: Breezy Bhat MD 02/21/2025 10:27 AM JESUS
--- OUTSIDE RECORDS SUMMARY | 2025-02-25 07:11 | XMS_ITS | Patient Health Record ---
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: 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 cigar ocassional cigar Problems Problem Type SNOMED Code ICD Code Onset Dates Problem Status W/U Status Risk Notes Problem Information temporarily unavailable Rectal bleeding (K62.5) Active confirmed Plan Of Treatment Future Test Test Name Order Date COLONOSCOPY 01/06/2013 COLONOSCOPY 07/01/2021 Insurance Providers Payer Name Payer Address Payer Phone Subscriber Number Group Number Insured Name Patient Relationship to Insured Coverage Start Date Coverage End Date [facility] [address] [place] [phone] [id number] RUBY JONES Self - patient is the insured Medical (General) History Medical History History ICD Code hypertension Colonoscopy 03/11 hyperplast ic polyp and mild sigmoid diverticulosis, ten-year followup Surgical History Surgery Date(Month/Year) tonsillectomy
--- OUTSIDE RECORDS SUMMARY | 2025-02-25 07:11 | XMS_ITS | Clinical Summary ---
Author Organization [facility] Address [address] [facility] [address] [place] [address] Phone Care Team Providers Care Geophysics Professor Name Role Phone James Carmona MD Primary Care Provider [phone] James Carmona MD Unavailable [phone] Adina Yan MD Unavailable [phone] Allergies No known active allergies Medications cholecalciferol [...] Type Department Care Team Description 01/06/2025 Telephone [facility] Internal Medicine [address] [place] [address] James Carmona MD CPAP order 12/26/2024 Refill [facility] Internal Medicine [address] [facility] [address] James Carmona MD Medication Refill from Last [...] high school, GED, job training, learning the [place] language, technical skills, or developing parenting skills)? [...] Description 03/03/2025 4:00 PM EST Office Visit [facility] Internal Medicine [address] [place] [address] James Carmona MD [address] [place] [address] [email or web address] 03/08/2025 10:00 AM EST Office Visit [facility] Internal Medicine [address] [place] [address] James Carmona MD [address] [place] [address] [email or web address] Health Maintenance Due [...] EDT) SODIUM 139 133 - 146 mmol/L [facility] POTASSIUM 3.8 3.3 - 5.1 mmol/L [facility] CHLORIDE 100 96 - 108 mmol/L [facility] CO2 27 21 - 35 mmol/L [facility] BUN 6 6 - 19 mg/dL [facility] CREATININE 0.70 0.5 - 1.5 mg/dL [facility] GLUCOSE 93 70 - 99 mg/dL [facility] ALBUMIN 4.2 3.9 - 4.8 g/dL [facility] TOTAL PROTEIN 7.5 6.5 - 8.0 g/dL [facility] CALCIUM 9.8 8.4 - 10.3 mg/dL [facility] ALKALINE PHOSPHATASE 102 39 - 117 U/L [facility] TOTAL BILIRUBIN 1.1 0.0 - 1.2 mg/dL [facility] AST 31 0 - 37 U/L [facility] ALT 23 0 - 40 U/L [facility] GLOBULIN 3.3 1 - 4.8 g/dL [facility] EGFR 104 >59 mL/min/1.7 3m2 [facility] Comment:Estimated glomerular filtration rate calculated using the CKD-EPI refit equation. ANION GAP 16 10 - 20 mmol/L [facility] Blood 06/07/2024 11:0 3 AM EDT 06/07/2024 11:05 AM EDT us James Carmona MD LAB BLOOD BKR ORDERABLES Yumi mejia Result [address] [address] * Lipid panel (10/26/2023 9:36 AM EDT) HDL 40 mg/dL [facility] Comment: Interpretation <40 mg/dL: Low HDL cholesterol (major risk factor for CHD) Greater than or equal to 60 mg/dL: High HDL cholesterol ( negative risk factor for CHD) HDL - cholesterol is affected by a number of factors, e.g. smoking, excerise, hormones, sex and age. CHOLESTEROL 143 0 - 240 mg/dL [facility] TRIGLYCERIDES 121 30 - 160 mg/dL [facility] LDL 79 50 - 129 mg/dL [facility] Comment: LDL levels in terms of risk for coronary heart disease: <100 mg/dL: Optimal 100-129 mg/dL: Near or above optimal 130-159 mg/dL: Borderline high 160-189 mg/dL: High >190 mg/dL: Very High CARDIAC RISK RATIO 3.6 3.4 - 5.0 [facility] Blood 10/26/2023 9:36 AM EDT 10/26/2023 9:40 AM EDT Result [facility] James Carmona MD LAB BLOOD BKR ORDERABLES Yumi l Result [address] [address] * HM COLONOSCOPY FOR RESULT ENTRY ONLY [...] Most Recently Relevant to Health Maintenance Insurance [facility] [employer] [facility] [employer] [facility] [employer] [facility] [employer] [facility] [employer] [facility] [employer] Care Teams Geophysics Professor Relationship Specialty Start Date End Date James Carmona MD [address] [place] [address] [email or web address] PCP - General 01/15/17 James Carmona MD [address] [place] [address] Historical LMR Provider 01/17/17 Adina Yan MD [address] [address] Dermatology 04/03/20 Additional Source Comments The information contained in this document represents components of the legal health record. It is not the complete legal health record.[facility]
== END 2025-02-22 07:09 | disposition home or self-care (01) ==
LOC: HO.HOSX 07:08
PROVIDERS: Visit Provider Orthopaedic Surgery
DX: M79.642 Pain in left hand (principal)
CPT/HCPCS: 73130

== ENCOUNTER 2025-03-02 10:00 | Day surgery (SDC) | payer OTHER, SELFPAY ==
--- OUTSIDE RECORDS SUMMARY | 2025-02-21 14:41 | XMS_ITS | Patient Health Record ---
Author Organization [facility] Address [address] [place] [address] Care Team Providers Care Steel Chipper Name Role Phone James Carmona MD Primary Care Provider Adonay Mcdaniels Jr Unavailable Allergies Allergen (clinical drug ingredient) Drug/Non Drug Allergy documented on EMR Reaction Allergy Type Onset Date Status seasonal (uncoded) Unknown Allergy A ctive Reason For Referral No Information Medications Medication SIG (Take, Route, Frequency, Duration) Notes Start Date End Date Status Lisinopril-hydroCHLOROthia zide Active MiraLax (colon prep) 17 GM/SCOOP Powder mixed with Gatorade or Crystal Light Orally begin at 5:00 p.m. 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 Section Notes: ocassional cigar ocassional cigar Problems Problem Type SNOMED Code ICD Code Onset Dates Problem Status W/U Status Risk Notes Problem Rectal bleeding (60431560) Rectal bleeding (K62.5) Active confirmed Plan Of Treatment Future Test Test Name Order Date COLONOSCOPY 01/06/2013 COLONOSCOPY 07/01/2021 Insurance Providers Payer Name Payer Address Payer Phone Subscriber Number Group Number Insured Name Patient Relationship to Insured Coverage Start Date Coverage End Date [facility] [address] [place] [phone] [id number] RUBY JONES Self - patient is the insured Medical (General) History Medical History History ICD Code hypertension Colonoscopy 03/11 hyperplast ic polyp and mild sigmoid diverticulosis, ten-year followup Surgical History Surgery Date(Month/Year) tonsillectomy
--- NOTE | 2025-03-02 10:30 | MHC.SHP ---
Pre-Procedural Eval Section A - 24 Hr Update-Section A only Date of Service: 03/02/25 The patient is an INPATIENT: No Changes since office visit: No Cold of Flu in the past 2 weeks, No New Medical Problems, No Changes in Medication and No Patient answered all questions The patient has been examined within 24 hours of the surgical procedure. The History & Physical has been completed within 30 days and I have reviewed it.: Yes Section B - Complete if H&P > 30 days Chief Complaint: Localized swelling, mass and lump, left upper limb Allergies: Allergies Allergy/AdvReac Type Severity Reaction Status Date / Time No Known Allergies Allergy Verified 02/21/25 09:47 Plan Diagnosis/Plan: Unchanged I have reviewed the history and physical and performed a pertinent physical examination on my patient. No changes have occurred unless specified. Time Spent With Patient Time: Total time managing care of this patient today ____ minutes.
--- NOTE | 2025-03-02 10:31 | P.OP_ITS ---
Operative Note Operative Note Date of Service: 03/02/25 Narrative: Operative Note Preop diagnosis: 1. Left small finger soft tissue mass Postop diagnosis: same Procedure: 1. Left small finger soft tissue mass excisional biopsy, Surgeon: Sagrario Shannon MD Licensed Loan Officer Assistant: Santo PONCE Anesthesia: digital block using 1% lidocaine with epinephrine Findings: A white spherical soft tissue mass measuring approximately 4-5 mm in diameter was excised from its attachment to the ulnar aspect of the extensor mechanism over the PIP joint. EBL: Less than 5 mL Tourniquet time: None Specimens: Left small finger soft tissue mass and to histopathology Complications: None Disposition: Brought to recovery room in stable condition Plan: Follow-up for 7-10 days for wound check and suture removal and to check pathology Indications: The patient is 64 years old, with left small finger soft tissue mass . The risks and benefits of operative treatment including but not limited to risk of damage to blood vessels, nerves, tendons, infection, persistent pain, persistent symptoms, recurrence or possible need for additional surgery were discussed with the patient and the patient wishes to proceed with surgery. Procedure: Once consent was obtained a digital block was performed in the preop area using a combination of 1% lidocaine with epinephrine. The patient was then brought back to the operating suite and placed on the operative table in supine position. The left upper extremity was prepped and draped in a standard surgical fashion. Once assured that we had a good block, we placed a finger tourniquet about the base of the left small finger for fewer than 30 minutes. I made a 1.5 cm dorsal longitudinal incision centered over the soft tissue mass on the dorsal ulnar aspect of the left small finger PIP joint. The incision was made through the skin to the subcutaneous tissues using a 15. Blade. I then carefully dissected down to the level of the mass using tenotomy and iris scissors. The mass was white in spherical and measured about 4-5 mm in diameter. It was attached to the extensor mechanism of the small finger on the ulnar side. The mass was excised from the extensor mechanism and the patient and placed on the back table to be sent for histopathology. No further masses were appreciated. Once satisfied with left small finger mass excision the wound was copiously irrigated with normal saline and hemostasis was obtained with a brief period of local pressure. The skin edges were reapproximated with some 5.0 nylon suture material and a sterile dressing was applied. The patient appears to have tolerated the procedure well and with no complications. All digits were well vascularized at the conclusion of the case.
[2025-03-02 10:55] VITALS: BMI 32.0
[2025-03-02 12:37] VITALS: BP 124/82; PULSE 73; RESP 18; O2SAT 95
== END 2025-03-02 12:43 | disposition home or self-care (01) ==
PROVIDERS: PCP Internal Medicine; Visit Provider Orthopaedic Surgery
PROC: (CPT 11420; principal; 2025-03-02 13:10)
DX: R22.32 Localized swelling, mass and lump, left upper limb (principal); Z89.022 Acquired absence of left finger(s); I10 Essential (primary) hypertension; K57.30 Diverticulosis of large intestine without perforation or abscess without bleeding; Z98.890 Other specified postprocedural states
CPT/HCPCS: 11420; 88304; 88305; J0165; J2003

== ENCOUNTER → 2025-03-02 10:00 | Outpatient (BNV) | payer OTHER, SELFPAY | PROVIDERS: PCP Internal Medicine; Visit Provider Orthopaedic Surgery | DX: R22.32 Localized swelling, mass and lump, left upper limb (principal) | CPT/HCPCS: 26115 ==

== ENCOUNTER 2025-03-14 13:58 | Outpatient (AMB) | payer OTHER, SELFPAY ==
--- NOTE | 2025-03-14 14:28 | MHC.OFFVIS ---
Vital Signs 03/14/25 14:33 Height 5 ft 8 in Weight 210 lb BMI 31.9 Intake Visit Reasons: PO LT SF mass exc 03/02/25 AR Intake Note: Garrett is a 64 year old left hand dominant male who presents today for a Post-Operative Visit status post Left Small Finger Mass Excisional Biopsy, DOS: 03/02/[address] Shannon. Patient states he is doing well. Patient is not taking any pain medications at this time. Sutures removed and steri strips applied. Allergies No Known Allergies Allergy (Verified 03/14/25 14:33) HPI HPI PO LT SF mass exc 03/02/25 AR: Details: Garrett is a 64 year old left hand dominant male who presents today for a Post-Operative Visit status post Left Small Finger Mass Excisional Biopsy, DOS: 03/02/[address] Shannon. Patient states he is doing well. Patient is not taking any pain medications at this time. Sutures removed and steri strips applied. [facility] Medical History (Updated 03/15/25 @ 13:28 by KRIS Smith) Diverticulosis Hypertension Surgical History Hx of tonsillectomy Hx of hand surgery Hx of hand surgery H/O colonoscopy Social History (Updated 02/21/25 @ 09:47 by NEY Prince) Patient Tobacco Use Status: Never used Tobacco Second Hand Smoke Exposure: No Current occupational status: retired Current occupation: left hand Review of Systems Const All systems reviewed & are unremarkable except as noted in HPI and below Physical Exam Vital Signs: BMI result Body Mass Index 31.9 Const General: no acute distress and alert Orientation/consciousness: patient oriented x3 Neuro General: patient oriented x3 Extrem Other: Evaluation of Left Upper Extremity: The patient is alert, oriented, and in no acute distress Neuro: Median, Ulnar, Radial nerves motor and sensory intact and sensation is normal to the tips of all digits Vascular: Cap refill brisk ROM: He can make a fist and extend all his digits, with goo strength and no pain No locking or catching 3-4 cm incision noted in area of previous mass, no evidence of mass recurrence No evidence of surrounding erythema, discharge, or other evidence of infection He has an ~5-10 degree flexion contracture of the small finger PIP joint, can be passively brought to full extension Good resolution of the nail horn Psych Appearance: grossly normal Affect: normal affect Attitude: cooperative Results Reviewed Results Reviewed: Pathology report from surgery reveals fibroma Assessment & Plan Assessment & Plan (1) Fibroma of finger of left hand: Code(s): D21.12 - Benign neoplasm of connective and other soft tissue of left upper limb, including shoulder Category: Medical Plan 1. Status post fibroma excision of the left small finger DOS 03/02/2025 Patient appears to be recovering well postoperatively Patient is educated about the typical recovery course No under water times one-week, 2 lb weight limit x2 weeks Patient appears to be recovering very well, and requires no further acute follow-up with us postoperatively Patient is educated and worrisome signs and symptoms, and should call us if they experience any of these, including but not limited to redness, swelling, increased pain, and discharge Patient understands this and is amenable to this plan Coding Level of Care Code Global (59269) Diagnoses Fibroma of finger of left hand D21.12
[2025-03-14 14:33] VITALS: BMI 31.9
--- OUTSIDE RECORDS SUMMARY | 2025-03-14 18:08 | XMS_ITS | Encounter Summary ---
Author Organization [facility] Address [address] [place] [address] Phone Care Team Providers Care Risk Consultant Name Role Phone James Carmona MD Primary Care Provider [phone] James Carmona MD Unavailable [phone] Adina Yan MD Unavailable [phone] Encounter Details Date Type Department Care Team (Late st Contact Info) Description 03/08/2025 Orders Only [facility] [address] [facility] [place] [address] Provider, MD Eduin [address] [place] [address] Social History Tobacco Use Types Packs/Day Years Used Date Smoking Tobacco: Never Smokeless Tobacco: Never Alcohol Use Standard Drinks/Week Comments Yes 8 (1 standard drink = 0.6 oz pur e alcohol) either wine or vodka Child or Family Care Answer Date Record ed Do you have problems with on e of the following making it difficult for you to work, study, or receive health care? No 03/07/2025 Education Answer Date Recorded Are you interested in help w ith more adult education (for example, completing high school, GED, job training, learning the [place] language, technical skills, or developing parenting skills)? No 03/07/2025 Are you concerned about learning? Not on file 03/07/2025 No 03/07/2025 Yes 03/07/2025 Food Answer Date Recorded Within the past 6 months we worried whether our food would run out before we got money to buy more. Never True 03/07/2025 Within the past 6 months the food we bought just didn't last and we didn't have enough money to get more. Never True Residential Stability Answer Date Recor ded What is your housing situation today? I have katie cheng 03/07/2025 How many times have you move d in the past 12 months? Zero (I did not move) 03/07/2025 Paying for Meds Answer Date Recorded Do you have trouble paying for medicines? No 03/07/2025 Paying Utility Bills Answer Date Record ed Do you have trouble paying your heating or elect ricity bill? No 03/07/2025 Transportation Answer Date Recorded Has the lack of transportati on kept you from medical appointments or from getting medications? No 03/07/2025 Unemployment Answer Date Recorded Are you currently unemployed or working on a part-time or temporary basis, and looking for work? No 06/25/2022 Digital Access Answer Date Recorded No 03/07/2025 Yes 03/07/2025 Do you have reliable internet access at home? Ye s 03/07/2025 Do you have a device (e.g., phone, tablet, computer) with a working camera? Yes 03/07/2025 Intimate Partner Violence Answer Date R ecorded Denied Basic Needs Not on file 03/07/2025 In the past 12 months have y ou been in a relationship with a person who hurts, threatens, or tries to control you? No 03/07/2025 Worried food would run out Not on file 03/07 In the past 12 months have y ou been in a relationship with a person who hurts, threatens, or tries to control you? No 03/07/2025 Sex and Gender Information Value Date Recorded Sex Assigned at Not on file Legal Sex Male 9:45 PM EDT Gender Identity Not on file Sexual Orientation Not on file documented as of this encounter Plan of Treatment Upcoming Encounters Date Type Department Care Team (Late st Contact Info) Description 08/25/2025 11:00 AM EDT Office Visit [facility] [address] [place] [address] James Carmona MD [address] [place] [address] [email or web address] documented as of this encounter Procedures Procedure Name Priority Date/Time Associated Diagnosis Comments OUTSIDE PATHOLOGY Routine 03/08/2025 12:53 PM EST documented in this encounter Results * Outside Pathology (03/08/2025 12:53 PM EST) Historical Provider PATHOLOGY ORDERABLES Yumi l Result documented in this encounter Visit Diagnoses Not on filedocumented in this encounter Additional Health Concerns Assessment Noted Time PHQ-2 Depression Total Score: 0 03/07/20 25 1:02 PM EST documented as of this encounter Care Teams Risk Consultant Relationship Specialty Start Date End Date James Carmona MD [address] [place] [address] PCP - General 01/15/17 James Carmona MD [address] [place] [address] Historical LMR Provider 01/17/17 Adina Yan MD [facility] [address] Dermatology 04/03/20 documented as of this encounter Additional Source Comments The information contained in this document represents components of the legal health record. It is not the complete legal health record.[facility]
--- OUTSIDE RECORDS SUMMARY | 2025-03-14 18:08 | XMS_ITS | Clinical Summary ---
Author Organization [facility] Address [address] [facility] [address] [place] [address] Phone Care Team Providers Care Rn Palliative Name Role Phone James Carmona MD Primary Care Provider [phone] James Carmona MD Unavailable [phone] Adina Yan MD Unavailable [phone] Allergies No known active allergies Medications therapeutic multivitamin tablet Take 1 tablet by mouth daily. Active SOUR HERNANDEZ EXTRACT ORAL Take 1 tablet by mouth daily. Active Medication-Free Text Tumeric Take 1 tablet by mouth once daily. Active NIACINAMIDE ORAL Take 2 capsules by mouth every evening. Active escitalopram oxalate (LEXAPRO) 20 MG tabletIndicatio ns:Anxiety TAKE 1 TABLET DAILY 90 tablet 3 06/14/19 25 Active hydroCHLOROthia zide 12.5 MG tabletIndicatio ns:Essential hypertension TAKE 1 TABLET DAILY 90 tablet 3 06/14/19 25 Active lisinopril (ZESTRIL) 10 MG tabletIndicatio ns:Benign essential hypertension Take 1 tablet (10 mg total) by mouth daily. 90 tablet 3 06/18/19 25 Active semaglutide, weight loss, (WEGOVY) 2.4 mg/0.75 mL subcutaneous pen injectionIndica tions:Class 1 obesity due to excess calories with serious comorbidity and body mass index (BMI) of 32.0 to 32.9 in adult Inject 0.75 mL (2.4 mg total) under the skin every 7 days. INJECT 0.75 ML (2.4 MG) SUBCUTANEOUS EVERY 7 DAYS. 3 mL 3 12/27/19 25 Active cholecalciferol (VITAMIN D3) 2,000 unit capsule Take 2,000 Units by mouth daily. 2024 Discontinued Active Problems Problem Noted Date Diagnosed Date [...] Encounters Date Type Department Care Team Description 03/10/2025 Telephone [facility] [address] [place] [address] James Carmona MD Referral request 03/08/2025 10:00 AM EST Office Visit [facility] [address] [place] [address] James Carmona MD Routine general medical examination at a health care facility (Primary Dx); Obstructive sleep apnea syndrome; Type 2 diabetes mellitus with hyperglycemia, without long-term current use of insulin; Benign essential hypertension; Class 2 severe obesity due to excess calories with serious comorbidity in adult, unspecified BMI; Screening for prostate cancer; Vitamin D deficiency, unspecified; Class 1 obesity due to excess calories with serious comorbidity and body mass index (BMI) of 31.0 to 31.9 in adult; Obstructive sleep apnea 03/08/2025 Orders Only [facility] [address] [facility] [place] [address] Eduin Russ MD 01/06/2025 Telephone [facility] [address] [place] [address] James Carmona MD CPAP order 12/26/2024 Refill [facility] [address] [place] [address] James Carmona MD Medication Refill from Last [...] high school, GED, job training, learning the [place] language, technical skills, or developing parenting skills)? [...] your housing situation today? I have katie prosper 03/07/2025 How many times have you move [...] Sign Reading Time Taken Comments Blood Pressure 130/80 03/08/2025 10:28 AM EST Pulse 76 03/08/2025 10:18 AM EST Temperature 37.4 C (99.4 F) 03/08/2025 10:18 AM EST Respiratory Rate 20 03/08/2025 10:18 AM EST Oxygen Saturation 96% 03/08/2025 10:18 AM EST Inhaled Oxygen Concentration - - Weight 94.3 kg (208 lb) 03/08/2025 10:18 AM EST Height 172.2 cm (5' 7.8 ) 03/08/2025 10:18 AM ES T Body Mass Index 31.82 03/08/2025 10:18 AM EST Plan of Treatment Upcoming Encounters Date Type Department Care Team (Late st Contact Info) Description 08/25/2025 11:00 AM EDT Office Visit [facility] [address] [place] [address] James Carmona MD [address] [place] [address] Health Maintenance Due Date Last Done Comments COLOGUARD 2006 FIT TEST 2006 FOBT 2006 SIGMOIDOSCOPY 2006 VIRTUAL COLONOSCOPY 2006 PNEUMOCOCCAL VACCINES (50+ years) (1 of 1 - PCV) 12/01/2011 INFLUENZA VACCINE (#1) 2024 , 02/21/2023, 12/23/2021, Additional history exists COVID-19 VACCINE (2024- season) 2024 01/12/2024, 03/02/2023, 02/27/2022, Additional history exists CREATININE LEVEL 06/07/2025 06/07/2024, 07/2023, 10/26/2023, Additional history exists POTASSIUM LEVEL 06/07/2025 06/07/2024, 07/2023, 10/26/2023, Additional history exists BLOOD PRESSURE 09/06/2025 03/08/2025 DEPRESSION SCREENING 03/07/2026 03/07/2025 SCREENING FOR DIABETES 06/08/2027 , 06/07/2024, 10/11/2019, [...] STATUS SCREENING (Once After 26 Yrs) Completed 03/08/2025 HEPATITIS A VACCINES Aged Out No long [...] OUTSIDE PATHOLOGY Routine 03/08/2025 12:53 PM EST COMPREHENSIVE METABOLIC PANEL (CMP) Routine 06/07/2024 11:03 [...] Recently Relevant to Health Maintenance Results * Outside Pathology (03/08/2025 12:53 PM EST) us Historical Provider PATHOLOGY ORDERABLES Yumi l Result * Comprehensive metabolic panel (06/07/2024 11:03 AM EDT) SODIUM 139 133 - 146 mmol/L [facility] POTASSIUM 3.8 3.3 - 5.1 mmol/L [facility] CHLORIDE 100 96 - 108 mmol/L [facility] CO2 27 21 - 35 mmol/L [facility] BUN 6 6 - 19 mg/dL [facility] CREATININE 0.70 0.5 - 1.5 mg/dL [facility] GLUCOSE 93 70 - 99 mg/dL [facility] ALBUMIN 4.2 3.9 - 4.8 g/dL [facility] TOTAL PROTEIN 7.5 6.5 - 8.0 g/dL [facility] CALCIUM 9.8 8.4 - 10.3 mg/dL [facility] ALKALINE PHOSPHATASE 102 39 - 117 U/L [facility] TOTAL BILIRUBIN 1.1 0.0 - 1.2 mg/dL [facility] AST 31 0 - 37 U/L [facility] ALT 23 0 - 40 U/L [facility] GLOBULIN 3.3 1 - 4.8 g/dL [facility] EGFR 104 >59 mL/min/1.7 3m2 [facility] Comment:Estimated glomerular filtration rate calculated using the CKD-EPI refit equation. ANION GAP 16 10 - 20 mmol/L [facility] Blood 06/07/2024 11:0 3 AM EDT 06/07/2024 11:05 AM EDT us James Carmona MD LAB BLOOD BKR ORDERABLES Yumi l Result Performing Organization Address City/[facility]/ZIP Co de Phone Number [address] [address] * Lipid panel (10/26/2023 9:36 AM EDT) HDL 40 mg/dL [facility] Comment: Interpretation <40 mg/dL: Low HDL cholesterol (major risk factor for CHD) Greater than or equal to 60 mg/dL: High HDL cholesterol ( negative risk factor for CHD) HDL - cholesterol is affected by a number of factors, e.g. smoking, excerise, hormones, sex and age. CHOLESTEROL 143 0 - 240 mg/dL [facility] TRIGLYCERIDES 121 30 - 160 mg/dL [facility] LDL 79 50 - 129 mg/dL [facility] Comment: LDL levels in terms of risk for coronary heart disease: <100 mg/dL: Optimal 100-129 mg/dL: Near or above optimal 130-159 mg/dL: Borderline high 160-189 mg/dL: High >190 mg/dL: Very High CARDIAC RISK RATIO 3.6 3.4 - 5.0 [facility] Blood 10/26/2023 9:36 AM EDT 10/26/2023 9:40 AM EDT us James Carmona MD LAB BLOOD BKR ORDERABLES Yumi l Result [facility] [address] [place] [address] * HM COLONOSCOPY FOR RESULT ENTRY ONLY (08/06/2021) Historical Provider HEALTH MAINTENANCE Edited Result - Final * Outside Glucose Tolerance Test (2 Hr) (10/11/2019) Glucose Tolerance - External 130 54 - 139 mg/dL Historical Provider LAB BLOOD ORDERABLES Yumi l Result * OUTSIDE HIV TEST (10/11/2019) HIV - External Neg Result [facility] Provider LAB BLOOD ORDERABLES Yumi l Result * Hepatitis C antibody, qualitative (10/11/2019) James Carmona MD LAB BLOOD BKR ORDERABLES Edit ed Result - Final from Last 3 Months or Most Recently Relevant to Health Maintenance Insurance [facility] [employer] [facility] [employer] [facility] ACCESS [facility] [employer] [facility] ACCESS [facility] ACCESS [employer] Care Teams Rn Palliative Relationship Specialty Start Date End Date James Carmona MD [address] [place] [address] [email or web address] PCP - General 01/15/17 James Carmona MD [address] [place] [address] Historical LMR Provider 01/17/17 Adina Yan MD [facility] [place] [address] Dermatology 04/03/20 Additional Source Comments The information contained in this document represents components of the legal health record. It is not the complete legal health record.[facility]
--- OUTSIDE RECORDS SUMMARY | 2025-03-14 18:08 | XMS_ITS | Patient Health Record ---
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 [phone] [id number] RUBY JONES Self - patient is the insured Medical (General) History Medical History History ICD Code hypertension Colonoscopy 03/11 hyperplast ic polyp and mild sigmoid diverticulosis, ten-year followup Surgical History Surgery Date(Month/Year) tonsillectomy
--- OUTSIDE RECORDS SUMMARY | 2025-03-14 18:08 | XMS_ITS | Encounter Summary ---
Author Organization [facility] Address [address] [facility] [address] [place] [address] Phone Care Team Providers Care Factory Expert Name Role Phone James Carmona MD Primary Care Provider [phone] James Carmona MD Unavailable [phone] Adina Yan MD Unavailable [phone] Reason for Referral * Consultation (Within 3 days (urgent)) - New Request Specialty Diagnoses / Procedures Referred By Carolina sierra Referred To Contact Diagnoses Mass of finger of left hand James Carmona MD [address] [place] [address] Phone: tel: fax: [email or web address] Referral ID Status Reason Start Date Expiration Date V isits Requested Visits Authorized [id number] New Request 03/10/2025 03/10/2026 1 1 Reason for Visit * Reason Onset Date Comments Referral request 03/10/2025 Encounter Details Date Type Department Care Team (Late st Contact Info) Description 03/10/2025 Telephone [facility] [address] [place] [address] James Carmona MD [address] [place] [address] [email or web address] Referral request Social History Tobacco Use Types Packs/Day Years [...] high school, GED, job training, learning the [place] language, technical skills, or developing parenting skills)? [...] your housing situation today? I have katie sing 03/07/2025 How many times have you move [...] on file documented as of this encounter Progress Notes * Julianna Iniguez - 03/10/2025 9:43 AM EST Referral. OV Note, Demographics faxed to [facility] [phone]/confirmation received * Juvenal Win - 03/10/2025 8:54 AM EST Referral Request 1. Name of the office where the patient has been seen/requests to be seen: [facility] 2. Reason for referral/specialist appointment and the diagnosis code: R22.32, mass of left finger 3. Date of appointment(s):03/09/25 5. NPI number to enter for referral authorization (enter n/a if not available): [id number] 6. Number of visits requested for referral: 12 7. Fax number of specialist office to send referral authorization: [phone] max Stephenson Referral pended documented in this encounter Plan of Treatment Upcoming Encounters Date Type Department Care Team (Late st Contact Info) Description 08/25/2025 11:00 AM EDT Office Visit [facility] [address] [place] [address] James Carmona MD [address] [place] [address] [email or web address] Scheduled Referrals Name Type Priority Associated Diagnoses Order Schedule Ambulatory referral to External Orthopedics Outpatient Referral Routine Mass of finger of left hand Ordered: 03/10/2025 documented as of this encounter Visit Diagnoses Diagnosis Mass of finger of left hand- Primary Localized superficial swelling, mass, or lump documented in this encounter Additional Health Concerns Assessment Noted Time PHQ-2 Depression Total Score: 0 03/07/20 25 1:02 PM EST documented as of this encounter Care Teams Factory Expert Relationship Specialty Start Date End Date James Carmona MD [address] [place] [address] PCP - General 01/15/17 James Carmona MD [address] [place] [address] Historical LMR Provider 01/17/17 Adina Yan MD [facility] [address] Dermatology 04/03/20 documented as of this encounter Additional Source Comments The information contained in this document represents components of the legal health record. It is not the complete legal health record.[facility]
== END 2025-03-14 14:52 | disposition home or self-care (01) ==
LOC: HO.HOS 13:58
PROVIDERS: PCP Internal Medicine
DX: D21.12 Benign neoplasm of connective and other soft tissue of left upper limb, including shoulder (principal)
CPT/HCPCS: 99024